=== PATIENT | male | born 1965 | race Caucasian/White ===

== ENCOUNTER 2016-11-27 11:28 | Emergency (ER) | payer MEDICAID ==
[~2016-11-27] VITALS: Ht 172.7 cm; Wt 110.0 kg
[2016-11-27 11:45] VITALS: BP 166/88
[2016-11-27] MEDS ORDERED: TETANUS, DIPHTHERIA, PERTUSSIS VAC/PF 0.5ML (>7YR OLD) IM ONE (12:15)
== END 2016-11-27 12:47 | disposition home or self-care (01) ==
LOC: ER 11:30
DX: S01.01XA Laceration without foreign body of scalp, initial encounter (principal); W01.0XXA Fall on same level from slipping, tripping and stumbling without subsequent striking against object, initial encounter; Y93.89 Activity, other specified; Y92.512 Supermarket, store or market as the place of occurrence of the external cause
CPT/HCPCS: 12002; 90471; 90715; 99283; X7700; Z7610